=== PATIENT | female | born 1955 | race Caucasian/White ===

== ENCOUNTER 2016-11-24 03:05 | Emergency (ER) | payer OTHER ==
[2016-11-24] MEDS ORDERED: Naproxen 500 MG TAB ONE (03:47)
[2016-11-24] MEDS ORDERED: Ondansetron ODT 4 MG TAB ONE (04:08)
[2016-11-24] MEDS ORDERED: Diazepam 5 MG TAB ONE (04:08)
--- NOTE | 2016-11-24 08:55 | CT ---
PRELIMINARY REPORT/[facility]/EMERGENCY AFTER HOURS PROCEDURE: EXAM: CT Lumbar Spine Without Intravenous Contrast CLINICAL HISTORY: 61 years old, female; Pain; Low back pain; Patient HX: Pt states she has osteoporosis. Pain started about 1 week ago. TECHNIQUE: Axial computed tomography images of the lumbar spine without intravenous contrast. Coronal and sagittal reformatted images were created and reviewed. EXAM DATE/TIME: Exam ordered 11/24/2016 3:55 AM COMPARISON: No relevant prior studies available. FINDINGS: Vertebrae: No fracture. Chronic superior endplate compression deformity and Schmorl's node of L1 javan tebral body. Discs/spinal canal/neural foramina: L4-L5 and L5-S1 disc bulges without evidence of nerve root impin gement and without significant central canal stenosis. Soft tissues: Unremarkable. Lungs: Indeterminate 5 mm left lower lobe pulmonary nodule. Kidneys and ureters: Bilateral Bochdalek hernias containing retroperitoneal fat and the superior ha es of the kidneys. Nonobstructing stones in the kidneys bilaterally. IMPRESSION: 1. No fracture. 2. Indeterminate 5 mm left lower lobe pulmonary nodule. Thank you for allowing us to participate in the care of your patient. Dictated and Authenticated by: Hector Sales MD 11/24/2016 4:43 AM Central Time ([place] \T\ [place]) FINAL REPORT EMERGENCY/AFTER HOURS EXAMINATION CT LUMBAR SPINE PERFORMED WITHOUT CONTRAST ENHANCEMENT HISTORY: Low back pain that started approximately a week ago. FINDINGS: A left lower lobe noncalcified pulmonary nodule is seen. It measures 5 mm. The bones appear demineralized. There is osteoporotic type cupping of the superior endplate of L1. This is associated with osteophytic change and is felt to be more chronic in nature. There are Mari morl's node changes seen associated with this. The other vertebral bodies are normal in height. Th e disk spaces are all fairly well preserved. I do not appreciate any disk herniation. At L4-L5, di sk bulge and facet and ligamentous hypertrophic changes appear to be associated with a mild degree o f canal stenosis. There are incidentally noted to be bilateral nonobstructing renal calculi seen. IMPRESSION: 1. A 5 mm left lower lobe noncalcified pulmonary nodule. Findings should be followed up based on F leischner guidelines. 2. Mild canal stenosis at L4-L5, related to disk bulge, as well as some ligamentous and facet hernandez es. 3. Bilateral nonobstructing renal calculi. 4. Chronic appearing osteoporotic type cupping to the superior endplate of L1. I do not believe th is is acute in nature. This report is in agreement with the temporary report issued by [facility]. POS: CORRINE
== END 2016-11-24 05:47 | disposition home or self-care (01) ==
LOC: MADERS 03:05
DX: M54.42 Lumbago with sciatica, left side (principal); M54.41 Lumbago with sciatica, right side; I10 Essential (primary) hypertension; M81.0 Age-related osteoporosis without current pathological fracture; Z79.899 Other long term (current) drug therapy
CPT/HCPCS: 72131; 96372; J2270; Q0162